=== PATIENT | female | born 2000 | race Caucasian/White ===

== ENCOUNTER 2024-10-31 15:19 | Observation (INO) | payer SELFPAY ==
[~2024-10-31] VITALS: Ht 175.3 cm; Wt 99.8 kg
--- NOTE | 2024-10-31 18:28 | DVHDS2 ---
Physician Discharge Progress N Final Diagnosis: IUP 22 wk Cramping, not in labor Operations or Procedures: Operations or Procedures monitoring, no contractions not in labor Condition on Discharge: Stable Disposition: Home Discharge Instructions: Diet: Regular Activity: Light activity Follow Up/Referral: PRN Medications: N/A Follow Up Care: Discharge Statement: "Patient was advised to return to the ER or call 911 if any headaches, dizziness, shortness of breath, chest pain, abdominal pain, bleeding, fevers, or worsening of medical condition. Patient was counseled about treatment plan, medications, possible side effects, patientverbalized understanding. All questions were answered to the best of my ability. This discharge took greater then 30 minutes in planning, reviewing documentation, counseling the patient, and discussing with other team members." VINNY NI DO Oct 31, 2024 18:28
== END 2024-10-31 16:36 | disposition home or self-care (01) ==
LOC: UNDOADMOB 15:19 → LDRP 15:19 → UNDODISOB 16:36
PROVIDERS: ADMIT Obstetrics & Gynecology; ATTEND Obstetrics & Gynecology
DX: O62.9 Abnormality of forces of labor, unspecified (principal); Z98.890 Other specified postprocedural states; Z79.899 Other long term (current) drug therapy; Z3A.22 22 weeks gestation of pregnancy
CPT/HCPCS: 59025; 81002; 94760; G0378